=== PATIENT | female | born 1965 | race American Indian/Alaskan Native ===

== ENCOUNTER 2018-10-29 09:29 | Emergency (ER) | payer OTHER ==
[2018-10-29] MEDS ORDERED: NACL 0.9% 1000 ML 1,000 ML IV ONE (10:22)
[2018-10-29] MEDS ORDERED: MORPHINE IV ONE (10:22)
[2018-10-29] MEDS ORDERED: ZOFRAN IV ONE (10:22)
[2018-10-29] MEDS ORDERED: TYLENOL PO ONE (10:23)
[2018-10-29 10:54] LABS: Hematocrit 37.8 % (30.3-42.9); Hemoglobin 12.9 gm/dl (10.1-14.3); Mean Corpuscular HGB Conc 34 % (30-34); Mean Corpuscular Volume 90 fl (79-97); Platelet Count 156 K/mm3 (140-440); Red Blood Count 4.23 M/mm3 (3.65-5.03); Red Cell Distribution Width 14.3 % (13.2-15.2)
--- NOTE | 2018-10-29 11:06 | Emergency Department Report ---
HPI - General Chief Complaint: Headache Time Seen by Provider: 10/29/18 09:45 - HPI HPI: 52-year-old -[place] female presents to the emergency department with a complaint of "I haven't felt well all weekend." The patient complains of a frontal headache, nausea with vomiting and some vomiting of blood, generalized weakness, intermittent chills and sweats. She has a past medical history of rheumatoid arthritis, osteoarthritis, hypertension, elevated cholesterol level. She has not taken anything for her symptoms prior to arrival within her normal home medications. Her primary care physician is Dr. Virginia Muhammad. No recent travel or sick contacts at home. ED Past Medical Hx - Past Medical History Previous Medical History?: Yes Hx Hypertension: Yes Hx Arthritis: Yes Hx Psychiatric Treatment: Yes (DEPRESSION AND ANXIETY) Additional medical history: HIGH CHOLESTEROL - Surgical History Past Surgical History?: Yes Additional Surgical History: LEFT KNEE - Social History Smoking Status: Never Smoker Substance Use Type: None - Medications Home Medications: Home Medications Medication Instructions Recorded Confirmed Last Taken Type HYDROcodone/APAP 5-325 [[place] 1 each PO Q6HR PRN #10 tablet 10/29/18 Unknown Rx 5/325] Ondansetron [Zofran Odt] 4 mg PO Q8HR PRN #12 tab.rapdis 10/29/18 Unknown Rx ED Review of Systems ROS: Stated complaint: GENERAL WEAKNESS Other details as noted in HPI Constitutional: diaphoresis. denies: chills Eyes: denies: eye pain, vision change ENT: denies: ear pain, throat pain Respiratory: denies: cough, shortness of breath Cardiovascular: denies: chest pain, palpitations Gastrointestinal: nausea, vomiting Genitourinary: denies: dysuria, discharge Musculoskeletal: myalgia. denies: back pain Skin: denies: rash, lesions Neurological: headache. denies: weakness, numbness, paresthesias Physical Exam - Physical Exam Vital Signs: Vital Signs 10/29/18 10/29/18 09:54 10:00 Temperature 100.8 F H 100.8 F H Pulse Rate 87 87 Respiratory 17 17 Rate Blood Pressure 152/81 Blood Pressure 152/81 [Left] O2 Sat by Pulse 96 96 Oximetry Physical Exam: GENERAL: The patient is well-developed well-nourished. HENT: Normocephalic. Atraumatic. Patient has moist mucous membranes. EYES: Extraocular motions are intact. Pupils equal reactive to light bilaterally. No nystagmus. NECK: Supple. Trachea is midline. CHEST/LUNGS: Clear to auscultation. There is no respiratory distress noted. HEART/CARDIOVASCULAR: Regular. There is no tachycardia. There is no murmur. ABDOMEN: Abdomen is soft, nontender. Patient has normal bowel sounds. Obese habitus. SKIN: Skin is warm and dry. NEURO: The patient is awake, alert, and oriented. The patient is cooperative. The patient has no focal neurologic deficits. The patient has normal speech. Cranial nerves II through XII grossly intact. MUSCULOSKELETAL: There is no tenderness or deformity. There is no limitation range of motion. There is no evidence of acute injury. ED Course Vital Signs 10/29/18 10/29/18 09:54 10:00 Temperature 100.8 F H 100.8 F H Pulse Rate 87 87 Respiratory 17 17 Rate Blood Pressure 152/81 Blood Pressure 152/81 [Left] O2 Sat by Pulse 96 96 Oximetry ED Medical Decision Making - Lab Data Result diagrams: 10/29/18 10:25 10/29/18 10:25 - EKG Data -: EKG Interpreted by [facility] EKG shows normal: sinus rhythm, axis, intervals, QRS complexes, ST-T waves (there is some flattening of T waves) Rate: normal - EKG Data When compared to previous EKG there are: previous EKG unavailable Interpretation: other (sinus rhythm, normal axis, normal rate, flattening of T waves) - Radiology Data Radiology results: report reviewed CT HEAD WITHOUT CONTRAST: HISTORY: Weakness. TECHNIQUE: Sequential 2.5mm CT images. COMPARISON: none. FINDINGS: Cerebral Parenchyma: Within normal limits. Cerebellum: Within normal limits. Brainstem: Within normal limits. Ventricles: Normal. Sella: Normal. Extra-axial spaces: Normal. Basal Cisterns: Normal. Intracranial Hemorrhage: None. Midline Shift: None. Calvarium: Normal. Sinuses: Normal. Mastoid Air Cells: Normal. Visualized Orbits: Normal. IMPRESSION: Cranial CT scan within normal limits. Transcribed By: TTR Dictated By: LENARD JUNIOR JR, MD Electronically Authenticated By: LENARD JUNIOR JR, MD Signed Date/Time: 10/29/18 5790 - Medical Decision Making Patient presents to the emergency department with 4-5 days of nausea and vomiting, headache, chills, sweats and body aches. On examination she does not appear to have any focal, motor or sensory deficits in her cranial nerves are i ntact. A CT scan of the head without contrast was done that does not show any bleed, shift, mass, ischemia, or any other acute process. Patient's labs have been mostly unremarkable except for some hypokalemia with potassium of 3. She was given some potassium chloride supplementation. She was also given some IV fluid, pain medication and nausea meds. She was reevaluated multiple times of a lot of hours and says she is feeling improved. This all appears most consistent with a viral syndrome. Prior to discharge, the patient was seen ambulatory in the emergency department in both [place] and appears stable. She is instructed to follow up with her primary care physician and will return to the ER with any worsening of her symptoms or any acute distress. - Differential Diagnosis viral syndrome, tension headache, subarachnoid, gastroenteritis Critical Care Time: No Critical care attestation.: If time is entered above; I have spent that time in minutes in the direct care of this critically ill patient, excluding procedure time. ED Disposition Clinical Impression: Viral syndrome, Hypokalemia Headache Qualifiers: Headache type: unspecified Headache chronicity pattern: unspecified pattern Intractability: not intractable Qualified Code(s): R51 - Headache Nausea & vomiting Qualifiers: Vomiting type: unspecified Vomiting Intractability: non-intractable Qualified Code(s): R11.2 - Nausea with vomiting, unspecified Disposition: DC-01 TO HOME OR SELFCARE Is pt being admited?: No Condition: Stable Instructions: Acute Headache (ED), Acute Nausea and Vomiting (ED), Viral Syndrome (ED) Additional Instructions: Please follow up with her primary care physician in the next few days. Return to the emergency Department with any worsening of your symptoms or any acute distress. You have been prescribed a medication that is sedating and therefore should not be taken prior to driving, working, and responsible for children and in no way should be mixed with alcohol of any quantity. Prescriptions: HYDROcodone/APAP 5-325 [[place] 5/325] 1 each PO Q6HR PRN #10 tablet PRN Reason: Pain Ondansetron [Zofran Odt] 4 mg PO Q8HR PRN #12 tab.rapdis PRN Reason: Nausea Referrals: [facility] [Provider Group] - 2-3 Days
[2018-10-29 11:16] LABS: Alanine Aminotransferase 16 units/L (7-56); Albumin 3.4 g/dL (3.9-5); BUN/Creatinine Ratio 7; Blood Urea Nitrogen 7 mg/dL (7-17); Calcium 8.3 mg/dL (8.4-10.2); Hemolysis Index 2
[2018-10-29 11:27] LABS: INR 1.13 (0.87-1.13)
[2018-10-29] MEDS ORDERED: K-DUR PO ONE (11:36)
[2018-10-29 11:39] LABS: Band Neutrophils # (Manual) 0.4 K/mm3; Basophils % (Manual) 0 % (0.0-1.8); Eosinophils % (Manual) 0 % (0.0-4.3); Total Cells Counted 100
[2018-10-29 11:40] LABS: Platelet Estimate Consistent w Auto; RBC Morphology Normal
[2018-10-29] MEDS ORDERED: REGLAN IV ONE (11:42)
--- NOTE | 2018-10-29 11:42 | Cat Scan Report ---
CT HEAD WITHOUT CONTRAST: HISTORY: Weakness. TECHNIQUE: Sequential 2.5mm CT images. COMPARISON: none. FINDINGS: Cerebral Parenchyma: Within normal limits. Cerebellum: Within normal limits. Brainstem: Within normal limits. Ventricles: Normal. Sella: Normal. Extra-axial spaces: Normal. Basal Cisterns: Normal. Intracranial Hemorrhage: None. Midline Shift: None. Calvarium: Normal. Sinuses: Normal. Mastoid Air Cells: Normal. Visualized Orbits: Normal. IMPRESSION: Cranial CT scan within normal limits.
[2018-10-29] MEDS ORDERED: DILAUDID IV ONE (11:43)
[2018-10-29 13:50] LABS: Bilirubin,Urine NEG (Negative); Blood,Urine NEG (Negative); Color,Urine Amber (Yellow); Mucus,Urine 2+ /HPF
[2018-10-29 14:22] VITALS: BP 128/78
== END 2018-10-29 14:17 | disposition home or self-care (01) ==
LOC: ED 09:29
DX: B34.9 Viral infection, unspecified (principal); E87.6 Hypokalemia; I10 Essential (primary) hypertension; F32.9 Major depressive disorder, single episode, unspecified; F41.9 Anxiety disorder, unspecified; E78.00 Pure hypercholesterolemia, unspecified; M06.9 Rheumatoid arthritis, unspecified
CPT/HCPCS: 36415; 70450; 80053; 81001; 84443; 84484; 85007; 85025; 85610; 93005; 93010; 96361; 96374; 96375; 99285; J1170; J2270; J2405; J2765; J7030